=== PATIENT | female | born 1995 | race Caucasian/White ===

== ENCOUNTER 2017-11-03 15:19 | Emergency (ER) | payer SELFPAY ==
[2017-11-03] MEDS ORDERED: Adacel (T-DAP) 0.5 ML VIAL ONE (15:39)
[2017-11-03] MEDS ORDERED: Triple Antibiotic Oint 1 GM Packet ONE (15:39)
[2017-11-03] MEDS ORDERED: HYDROcodone/Acetaminophen 10/325 mg Tablet ONE (15:44)
== END 2017-11-03 16:15 | disposition home or self-care (01) ==
LOC: MADERS 15:19
DX: S61.111A Laceration without foreign body of right thumb with damage to nail, initial encounter (principal); W26.0XXA Contact with knife, initial encounter
CPT/HCPCS: 90471; 90715

== ENCOUNTER 2019-04-09 14:28 | Emergency (ER) | payer OTHER, SELFPAY | END 2019-04-09 15:50 | disposition home or self-care (01) | LOC: MADERS 14:28 | DX: J11.1 Influenza due to unidentified influenza virus with other respiratory manifestations (principal) | CPT/HCPCS: 99283 ==